=== PATIENT | female | born 1990 | race Hispanic/Latino ===

== ENCOUNTER → 2019-04-08 | Outpatient (CLI) | payer SELFPAY ==
[~2019-04-08] MED LIST: AZURETTE 28 DA1 EACH; BENTYL10 MG PO; BIRTH CONTROL; IOPAMIDOL 370 MG/ML 200 ML INFUS..BTL INJ ONE; NAPROXEN250 MG PO; PANTOPRAZOLE SO40 MG PO; PROPRANOLOL; SODIUM CHLORIDE 0.9% 50ML 50 ML ONE; ZOFRAN ODT4 MG PO; [UNRECOGNIZED DRUG - OTHER]
--- NOTE | 2019-04-08 16:35 | Diagnostic Imaging Report ---
CT of the abdomen and pelvis, with contrast, 04/08/2019. History: Left lower quadrant abdominal pain. Comparison: None available. Technique: Multidetector CT scanning of the abdomen and pelvis was performed from the level of the lung bases to the inferior pubic rami after intravenous and without oral administration of contrast. Coronal and sagittal multiplanar reformations were obtained. RADIATION DOSE: Total DLP: 631 mGy*cm Dose modulation, iterative reconstruction, and/or weight based adjustment of the mA/kV was utilized to reduce the radiation dose to as low as reasonably achievable. Discussion: LUNG BASES: No visualized abnormalities. ABDOMEN: The liver, gallbladder, biliary tree, spleen, pancreas, adrenal glands, and kidneys are normal. The hepatic vein, portal vein, and splenic vein are patent. The abdominal aorta is within normal limits for size. Evaluation of bowel is limited without oral contrast. There is no bowel dilatation. The appendix is visualized and is normal. There is no evidence of adenopathy or free fluid. PELVIS: A 2.3 x 1.9 cm fat and calcification containing oval lesion is present in the left adnexa. The bladder and uterus are unremarkable. There is no evidence of free fluid or adenopathy. BONES AND SOFT TISSUES: No abnormalities. IMPRESSION: Fat and calcification containing left adnexal lesion consistent with ovarian dermoid. This may be confirmed with pelvic ultrasound. Otherwise unremarkable CT of the abdomen and pelvis. No evidence of cholelithiasis, nephrolithiasis, or appendicitis. Signed by: Zan Subramanian on 04/08/2019 4:32 PM
== END ==
LOC: CT 15:07
PROVIDERS: ATTEND Internal Medicine Gastroenterology
DX: R10.32 Left lower quadrant pain (principal); D27.1 Benign neoplasm of left ovary
CPT/HCPCS: 74177; 81025; Q9967